=== PATIENT | female | born 1960 | race Hispanic/Latino ===

== ENCOUNTER → 2019-10-20 | Outpatient (CLI) | payer BC ==
--- NOTE | 2019-10-21 09:24 | US ---
EXAM DESCRIPTION: Carotid Duplex: ULTRASOUND. CLINICAL HISTORY: 59 years Female TRANSIENT CEREBRAL ISCHEMIA COMPARISON: None. TECHNIQUE: Transcutaneous scanning utilizing preston-scale and Doppler modes to evaluate the bilateral carotid systems and vertebral arteries. Percentage of diameter of stenosis or no stenosis recorded will be based upon NASCET criteria. FINDINGS: Peak systolic/end diastolic (CM-Sec) CCA Right 87/21 Left 114/20. ICA Right proximal 56/14, distal 74/25. Left proximal 48/15, mid 75/24. Vertebral Right 47/15 Left 41/10. ECA (PS Only) Right 90 left 75. ICA/CCA peak systolic ratio: Right 0.8 Left 0.7 ICA/CCA end diastolic ratio: Right 1.2 Left 1.2 Vertebral arteries: antegrade flow. Comments: Bilateral atherosclerotic calcifications. Color turbulent flow in the distal right ICA. No Spectral broadening. Normal color Doppler left CCA bulb and ICA. IMPRESSION: 1. Doppler evaluation of the bilateral carotid systems and vertebral arteries shows no hemodynamically significant stenoses (less than 70%). 2. No significant amount of plaque in the carotid arteries bilaterally. Bilateral vertebral arteries showed antegrade-cephalad flow. Electronically signed by: Ruben Menezes MD 10/21/2019 9:23 AM CDT
--- NOTE | 2019-10-21 11:10 | CT ---
EXAM DESCRIPTION: Soft Tissue Neck w/Contrast: Computed Tomography CLINICAL HISTORY: 59 years Female, MASS OF SUBMANDIBULAR REGION COMPARISON: None. TECHNIQUE: Spiral, axial 2.5 x 2.5 mm scans through the neck soft tissues after infusion of IV contrast. Sagittal and coronal 2.0 mm reconstructions. No adverse reactions. Total Exam DLP: 391 mGy-cm. This exam was performed according to our departmental CT dose-optimization program which includes automated exposure control, adjustment of the mA and/or kV according to patient size and/or use of iterative reconstruction technique; to reduce radiation dose to as low as reasonably achievable (ALARA). FINDINGS: The airway and adjacent soft tissues are symmetric with no mass effect or abnormal enhancement from the nasopharynx to the upper trachea symmetric enhancement and appearance of the thyroid gland. Lymph nodes abutting the submandibular glands and in the parapharyngeal carotid and paracervical spaces are small and demonstrate a benign appearance. Lymph node anterior to the right submandibular gland measures 1.8 x 0.7 x 1.2 cm with well-defined fatty hilum, and normal density of the surrounding fat Salivary glands symmetric with normal enhancement. Muscles and subcutaneous adipose tissues are symmetric with normal enhancement. Soft tissue polyp or mucous retention cyst base of the left antrum. Minimal mucosal thickening right antrum. Other included paranasal sinuses are negative. Posterior right septal spur and deviation. Mastoid air cells are well aerated. Internal ear mechanism grossly normal bilaterally. Included lungs and upper mediastinum are negative IMPRESSION: 1. Benign appearance of lymph node anterior to the right submandibular gland. Other smaller lymph nodes in the neck are unremarkable. No abnormal mass or enhancement. No fatty inflammatory changes and no fluid collection. 2. Minimal paranasal sinus disease as described. Electronically signed by: Ruben Menezes MD 10/21/2019 11:09 AM CDT
== END ==
LOC: CT 09:35
PROVIDERS: ATTEND Emergency Medicine
DX: Z01.812 Encounter for preprocedural laboratory examination (principal); G45.9 Transient cerebral ischemic attack, unspecified; R22.1 Localized swelling, mass and lump, neck; M53.3 Sacrococcygeal disorders, not elsewhere classified

== ENCOUNTER → 2019-10-29 | Outpatient (CLI) | payer BC ==
--- NOTE | 2019-10-30 09:11 | RAD ---
EXAM: Hip,Right 2 Views CLINICAL HISTORY: M53.3 COMPARISON STUDY: None TECHNICAL: AP and lateral x-rays of the right hip. FINDINGS: The right hip is in alignment. There is no fracture. There is no gross joint space loss. There are no significant degenerative changes. The visible pelvic ring is intact. There are mild degenerative changes of the right sacroiliac joint. IMPRESSION: 1. Negative adult right hip. 2. 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 Electronically signed by: Severo Reece MD 10/30/2019 9:10 AM CDT
== END ==
LOC: RAD 16:13
PROVIDERS: ATTEND Emergency Medicine
DX: M53.3 Sacrococcygeal disorders, not elsewhere classified (principal); M47.898 Other spondylosis, sacral and sacrococcygeal region